=== PATIENT | female | born 1990 | race Caucasian/White ===

== ENCOUNTER 2017-07-17 17:05 | Emergency (ER) | payer OTHER ==
--- NOTE | 2017-07-17 17:29 | EDPHY ---
General - History Smoking Status: Never smoked Narrative: CHIEF COMPLAINT: Chest pain HISTORY OF PRESENT ILLNESS: Patient complains of left-sided chest pain. This started abruptly 2 hours ago while at rest. It is described as a pleuritic type pain that is worse with inspiration. It does radiate through to the back on the left side only. No cough. No hemoptysis. No shortness of breath. no recent upper or lower respiratory infections. No trauma or surgery. No extremity erythema edema or pain. She did fly to [place] 10 days ago. She has no previous venous thrombolic event. She does not take any estrogen or control pills. No other associated complaints or modifying factors. REVIEW OF SYSTEMS: Ten systems reviewed and are negative unless otherwise noted in the HPI SPECIALISTS: None PAST MEDICAL HISTORY: Asthma orthopedic injuries PAST SURGICAL HISTORY: Ankle reconstruction. Tubal cyst removal SOCIAL HISTORY: Nonsmoker. 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 Respiratory: Lungs are clear to auscultation. No wheezing, rhonchi or crackles Cardiovascular: Regular rate and rhythm. No murmur Gastrointestinal: Abdomen is soft and nontender Back: non-tender, no bony abnormalities Neurological: A&O, nonfocal Skin: Warm and dry, no rash. No petechiae or purpura Extremities: Nontender, no pedal edema. Range of motion is symmetric in the extremities Psychiatric: Mood and affect normal DIFFERENTIAL DIAGNOSES: Including but not limited to: Musculoskeletal pain, pneumonia, bronchitis, pleurisy, PE MDM: 5:28 p.m. Left-sided chest pain that radiates to the back. This is a pleuritic type pain. Vital signs were well within normal limits. She does have a recent flight to [place] less than 2 weeks ago. She is not tachycardic or tachypneic. She is not hypoxic. She does not have any hemoptysis. No evidence of DVT in the extremities. I have ordered a D-dimer laboratory studies. I have ordered chest x-ray. EKG is currently being obtained. Low clinical suspicion for cardiac involvement as this is somewhat reproducible with movement of the arm. She is in no acute distress and vital signs stable. I have discussed the case with Dr. Betts 6:20 p.m. Laboratory studies reveal a mildly elevated white count of 13. Troponin negative. D-dimer negative. EKG unremarkable and interpreted by Dr. Betts. Chest x-ray has not yet been obtained. 7:10 p.m. Chest x-ray has been read with Dr. Betts. Without the aid of the radiologist , we do not appreciate any acute findings. I have re-examined the patient. Vital signs remained within normal limits. She has no worsening of her pain. No improvement at this time. She has no shortness of breath. No fever. I do not feel this is cardiac in etiology. Her D-dimer is negative, thus I do not think that this is a pulmonary embolism. We discussed treating this as a musculoskeletal pain. We discuss anti-inflammatories and Flexeril. We discussed follow up with primary care physician in the next 2-3 days. We also discussed ED precautions for worsening pain, fever, shortness of breath, exertional pain. The patient and her significant other are comfortable with this plan. She will be discharged home stable condition. EKG interpretation: Dr. Betts Normal sinus rhythm. Rate 97. No ischemia. SUPERVISION: Patient was evaluated and examined in conjunction with my secondary supervising physician as documented. We have both examined the patient. (Luis M Watt) - Diagnostics Imaging Results: Imaging Impressions Chest X-Ray 07/17/17 17:29 Impression: Normal. Discussion: I evaluated and participated in the management of the patient. I also evaluated the patient independently. My co-signature indicates that I have reviewed this chart and I agree with the findings and plan of care as documented. My personal H&P findings include: Pleasant 26-year-old female presenting with lateral left chest discomfort with radiation down toward her scapula as well as under her breast which developed earlier today. Mildly pleuritic. Has been sick with GI symptoms last week. No current fever. No cough. No palpitations , syncope, lightheadedness, or dizziness. No history of DVTs or PEs. No family history of DVTs or PEs. Patient is a nonsmoker and is not on any control pills or estrogen. On examination the patient is alert, well-developed well-nourished. Lung sounds are clear to auscultation. Heart is regular rate and rhythm. Very mild discomfort with palpation in the infrascapular region in. No rash noted. Evaluation included an EKG without ischemic changes. Negative troponin. Negative D-dimer. Chest x-ray which does not demonstrate a clear etiology of the patient's pain. Suspect musculoskeletal versus atypical pain. No signs of a rash at this point. Feel patient is safe to be discharged home close follow-up. She was instructed regarding ibuprofen and Tylenol. She will return if she develops a rash. She will return if she develops worsening symptoms, including fevers, chills, cough, sputum production, worsening pain, lightheadedness, dizziness. (Leticia Betts) - Objective Vital Signs: Initial Vital Signs Temperature (C) 97.9 F 07/17/17 17:09 Heart Rate 88 07/17/17 17:09 Respiratory Rate 18 07/17/17 17:09 Blood Pressure 125/86 H 07/17/17 17:09 O2 Sat (%) 98 07/17/17 17:09 O2 Delivery Mode Room Air Allergies/Adverse Reactions: No Known Allergies Allergy (Unverified 07/17/17 17:08) Home Medications: Medication Instructions Recorded Cyclobenzaprine [Flexeril 10 MG 10 mg PO TID PRN #15 tab 07/17/17 (*)] Ibuprofen 600 mg PO Q8 PRN #15 tablet 07/17/17 Laboratory Results: Laboratory Results 07/17/17 17:30 07/17/17 17:30 07/17/17 07/17/17 07/17/17 17:30 17:30 17:30 WBC RBC Hgb Hct MCV MCH MCHC RDW Plt Count MPV Neut % (Auto) Lymph % (Auto) [place] % (Auto) Eos % (Auto) Baso % (Auto) Nucleat RBC Rel Count Absolute Neuts (auto) Absolute Lymphs (auto) Absolute Monos (auto) Absolute Eos (auto) Absolute Basos (auto) Absolute Nucleated RBC Immature Gran % Immature Gran # D-Dimer < 0.27 ug/mLFEU ug/mLFEU (0.00-0.50) Sodium 139 mEq/L mEq/L (134-144) Potassium 3.6 mEq/L mEq/L (3.5-5.2) Chloride 98 mEq/L mEq/L (97-110) Carbon Dioxide 24 mEq/l mEq/l (22-31) Anion Gap 17 mEq/L H mEq/L (8-16) BUN 12 mg/dL mg/dL (7-23) Creatinine 1.0 mg/dL mg/dL (0.6-1.0) Estimated GFR > 60 Glucose 98 mg/dL mg/dL (70-100) Calcium 10.3 mg/dL mg/dL (8.5-10.4) Troponin I < 0.012 ng/mL ng/mL (0.000-0.034) Beta HCG, Qual NEGATIVE 07/17/17 17:30 WBC 13.02 10^3/uL H 10^3/uL (3.80-9.50) RBC 5.00 10^6/uL 10^6/uL (4.18-5.33) Hgb 15.3 g/dL g/dL (12.6-16.3) Hct 44.0 % % (38.0-47.0) MCV 88.0 fL fL (81.5-99.8) MCH 30.6 pg pg (27.9-34.1) MCHC 34.8 g/dL g/dL (32.4-36.7) RDW 11.9 % % (11.5-15.2) Plt Count 341 10^3/uL 10^3/uL (150-400) MPV 10.3 fL fL (8.7-11.7) Neut % (Auto) 74.8 % H % (39.3-74.2) Lymph % (Auto) 19.7 % % (15.0-45.0) [place] % (Auto) 4.1 % L % (4.5-13.0) Eos % (Auto) 0.5 % L % (0.6-7.6) Baso % (Auto) 0.5 % % (0.3-1.7) Nucleat RBC Rel Count 0.0 % % (0.0-0.2) Absolute Neuts (auto) 9.75 10^3/uL H 10^3/uL (1.70-6.50) Absolute Lymphs (auto) 2.56 10^3/uL 10^3/uL (1.00-3.00) Absolute Monos (auto) 0.53 10^3/uL 10^3/uL (0.30-0.80) Absolute Eos (auto) 0.06 10^3/uL 10^3/uL (0.03-0.40) Absolute Basos (auto) 0.07 10^3/uL 10^3/uL (0.02-0.10) Absolute Nucleated RBC 0.00 10^3/uL 10^3/uL (0-0.01) Immature Gran % 0.4 % % (0.0-1.1) Immature Gran # 0.05 10^3/uL 10^3/uL (0.00-0.10) D-Dimer Sodium Potassium Chloride Carbon Dioxide Anion Gap BUN Creatinine Estimated GFR Glucose Calcium Troponin I Beta HCG, Qual Departure - Departure Disposition: Home, Routine, Self-Care Clinical Impression: Chest pain Qualifiers: Chest pain type: unspecified Qualified Code(s): R07.9 - Chest pain, unspecified Condition: Good Instructions: Chest Pain (ED), Chest Wall Pain (ED) Additional Instructions: 1. Medications as prescribed as needed 2. Contact her primary care physician tomorrow to be seen in the next few days 3. ED precautions as discussed Referrals: Judit Johnson MD [Primary Care Provider] - As per Instructions Prescriptions: Cyclobenzaprine [Flexeril 10 MG (*)] 10 mg PO TID PRN #15 tab PRN Reason: Spasms Ibuprofen 600 mg PO Q8 PRN #15 tablet PRN Reason: Pain, Mild
--- NOTE | 2017-07-17 17:32 | CPEKG ---
Heart Rate: 87 RR Interval: 690 P-R Interval: 128 QRSD Interval: 86 QT Interval: 380 QTC Interval: 457 P [place]: 63 QRS [place]: 60 T Wave [place]: 36 EKG Severity - NORMAL ECG - EKG Impression: SINUS RHYTHM Electronically Signed By: Leticia Betts 17-Jul-2017 22:40:49
[2017-07-17 17:46] LABS: % IMMATURE GRANULYOCYTES 0.4 % (0.0-1.1); ABSOLUTE IMMATURE GRANULOCYTES 0.05 10^3/uL (0.00-0.10); ADD DIFF? NO; ADD MORPH? NO; ADD SCAN? NO; ATYPICAL LYMPHOCYTE FLAG 0 (0-99); FRAGMENT RBC FLAG 0 (0-99); HEMOGLOBIN 15.3 g/dL (12.6-16.3); LEFT SHIFT FLG 0 (0-99); LIPEMIA HEMOLYSIS FLAG 90 (0-99); MEAN CELL HEMOGLOBIN 30.6 pg (27.9-34.1); MEAN CELL HEMOGLOBIN CONCENTR. 34.8 g/dL (32.4-36.7); MEAN PLATELET VOLUME 10.3 fL (8.7-11.7); PLATELET CLUMPS FLAG 0 (0-99); PLATELET COUNT 341 10^3/uL (150-400); RED CELL DISTRIBUTION WIDTH 11.9 % (11.5-15.2)
[2017-07-17 17:59] LABS: ANION GAP 17 mEq/L (8-16); CALCIUM 10.3 mg/dL (8.5-10.4); CARBON DIOXIDE 24 mEq/l (22-31); CHLORIDE 98 mEq/L (97-110); GLOMERULAR FILTRATION RATE > 60; GLUCOSE 98 mg/dL (70-100); POTASSIUM 3.6 mEq/L (3.5-5.2); SODIUM 139 mEq/L (134-144)
[2017-07-17 18:11] LABS: TROPONIN I < 0.012 ng/mL (0.000-0.034)
[2017-07-17 18:25] VITALS: O2SAT 97
[2017-07-17 19:23] VITALS: BP 116/76; PULSE 95; RESP 20; TEMP 98.2
== END 2017-07-17 19:22 | disposition home or self-care (01) ==
DX: R07.9 Chest pain, unspecified (principal); J45.909 Unspecified asthma, uncomplicated

== ENCOUNTER 2017-07-23 07:28 | Emergency (ER) | payer OTHER ==
--- NOTE | 2017-07-23 07:44 | EDPHY ---
HPI/HX/ROS/PE/MDM Narrative: CHIEF COMPLAINT: N/V/D HISTORY OF PRESENT ILLNESS: The patient is a 26 y/o female arriving with her complaining of nausea, vomiting, and diarrhea starting in the nurse wound care hours. She was evaluated here last week for musculoskeletal chest pain and had mild GI symptoms at that time as well. Her chest pain resolved with ibuprofen. She was around family members at [facility] with GI symptoms, though their symptoms have resolved. She was feeling relatively well and traveled home from out of town last night, and her ate the same food as her without developing symptoms. She's had 6 episodes of non-bloody diarrhea since last night. No blood in emesis. No fevers. She has some mild abdominal cramping. Last menstrual period was about 2-3 weeks ago. No fever, chills, chest pain, shortness of breath, palpitations, urinary complaints, flank pain, headache, lightheadedness. REVIEW OF SYSTEMS: Aside from elements discussed in the HPI, a comprehensive 10-point review of systems was reviewed and is negative. PAST MEDICAL HISTORY: Fallopian tube cyst removal, otherwise no abdominal surgeries. SOCIAL HISTORY: No recent alcohol use. Nonsmoker. No marijuana use. at bedside. 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 VITAL SIGNS: Reviewed by me GENERAL: Well-developed, well-nourished, looks uncomfortable, complaining of nausea. HEENT: Atraumatic. Eyes: No icterus, no injection. Mouth: dry mucous membranes. No erythema or lesions. Neck: supple with no adenopathy. LUNGS: Clear to auscultation bilaterally, no wheezes, rhonchi or rales. CARDIAC: Regular rate and rhythm, no rubs, murmurs or gallops. ABDOMEN: Soft, mild diffuse tenderness with voluntary guarding, no rebound, nondistended, bowel sounds normal. BACK: Mild left CVA tenderness. EXTREMITIES: No trauma. No edema. Range of motion is normal throughout. NEURO: Alert and oriented, grossly nonfocal. SKIN: Slightly cool and dry, no rash. PSYCHIATRIC: Normal mentation, no agitation. Portions of this note were transcribed by a certified medical aide. I personally performed a history, physical exam, medical decision making, and confirmed accuracy of information the transcribed note. ED Course: This is a normally healthy 26 y/o female who presents with nausea and vomiting and new-onset diarrhea in the last 12 hours. She has mild diffuse abdominal tenderness and dry mucous membranes on exam. Plan for IV, labs, UA, flu swab, and symptom management. 1L IV NS and 4mg IV Zofran administered. No fevers, no exotic travel. WBC elevated at 20.9. Reassessed patient. She appears significantly improved and more active. Her abdomen is completely benign. Plan for another 1L IV NS and check urinalysis. No evidence of UTI on UA/microscopic exam. Patient overall looks very well post fluids. No fever. Smiling, comfortable, abdomen benign. Feel no further treatment or studies are indicated. Discussed significantly elevated WBC with patient. She and understand reasons to return, leydi if fever develops, symptoms recur or are not well controlled with at home measures. Will DC with zofran. MDM: Differential diagnosis of the patient's nausea and vomiting was considered including but not limited to gastroenteritis, gastritis, alcohol intoxication, withdrawal symptoms, intraabdominal processes including appendicitis, pancreatitis, bowel obstruction and medication side effect. - Data Points Laboratory Results: Laboratory Results 07/23/17 07:55 07/23/17 07:55 Medications Given: Discontinued Medications Sodium Chloride (Ns) 1,000 mls @ 0 mls/hr IV EDNOW ONE; Wide Open PRN Reason: Protocol Stop: 07/23/17 07:46 Last Admin: 07/23/17 08:00 Dose: 1,000 mls Ondansetron HCl (Zofran) 4 mg IVP EDNOW ONE Stop: 07/23/17 07:46 Last Admin: 07/23/17 07:59 Dose: 4 mg Microbiology Results: MICROBIOLOGY 07/23/17 09:48 Unspecified Urine Culture - Preliminary Five Or More [place] Types General Time Seen by Provider: 07/23/17 07:34 Initial Vital Signs: Initial Vital Signs Temperature (C) 36.6 C 07/23/17 07:29 Heart Rate 91 07/23/17 07:29 Respiratory Rate 18 07/23/17 07:29 Blood Pressure 105/72 07/23/17 07:29 O2 Sat (%) 98 07/23/17 07:29 O2 Delivery Mode Room Air Allergies/Adverse Reactions: No Known Allergies Allergy (Verified 07/23/17 07:29) Home Medications: Medication Instructions Recorded Ondansetron Odt [Zofran Odt 4 mg 4 mg PO Q6 PRN #8 tab 07/23/17 (RX)] Departure - Departure Disposition: Home, Routine, Self-Care Clinical Impression: Gastroenteritis Condition: Good Instructions: Gastroenteritis (ED), Acute Nausea and Vomiting (ED) Additional Instructions: 1. Take Zofran as prescribed when needed for nausea and vomiting. Increase fluid intake with small, frequent sips of fluid. For your vomiting and diarrhea, I suggested you start with a bland diet and advance as tolerated. This means start with clear liquids such as water, Gatorade, juice, flat non- caffeinated soda. If you tolerate clear liquids, then you may add bland foods such as bananas, rice, or toast. If you do not have any worsening of your symptoms, you may begin to resume a regular diet. 2. Follow up with your primary care provider for unimproved symptoms over the next 2-3 days. 3. Return to the ED for worsening of condition. Referrals: Lena Ahn MD [Medical Doctor] - As per Instructions Prescriptions: Ondansetron Odt [Zofran Odt 4 mg (RX)] 4 mg PO Q6 PRN #8 tab PRN Reason: Nausea Report Scribed for: Leticia Betts Report Scribed by: Makenzie Boateng Date of Report: 07/23/17 Time of Report: 07:46
[2017-07-23] MEDS ORDERED: NS 1,000 ML IV ONE (07:45)
[2017-07-23] MEDS ORDERED: ONDANSETRON 4 MG/2 ML VIAL IVP ONE (07:45)
[2017-07-23 08:05] LABS: % IMMATURE GRANULYOCYTES 0.4 % (0.0-1.1); ABSOLUTE IMMATURE GRANULOCYTES 0.08 10^3/uL (0.00-0.10); ADD DIFF? NO; ADD MORPH? NO; ADD SCAN? NO; ATYPICAL LYMPHOCYTE FLAG 0 (0-99); FRAGMENT RBC FLAG 0 (0-99); HEMATOCRIT 42.4 % (38.0-47.0); HEMOGLOBIN 15.6 g/dL (12.6-16.3); LEFT SHIFT FLG 0 (0-99); LIPEMIA HEMOLYSIS FLAG 90 (0-99); MEAN CELL HEMOGLOBIN 31.7 pg (27.9-34.1); MEAN CELL HEMOGLOBIN CONCENTR. 36.8 g/dL (32.4-36.7); MEAN CELL VOLUME 86.2 fL (81.5-99.8); MEAN PLATELET VOLUME 10.3 fL (8.7-11.7); PLATELET CLUMPS FLAG 0 (0-99); PLATELET COUNT 330 10^3/uL (150-400); RED BLOOD CELL COUNT 4.92 10^6/uL (4.18-5.33); RED CELL DISTRIBUTION WIDTH 11.9 % (11.5-15.2)
[2017-07-23 08:26] LABS: ALANINE AMINOTRANSFERASE 30 IU/L (9-52); ALBUMIN 4.9 g/dL (3.5-5.0); ALKALINE PHOSPHATASE 52 IU/L (38-126); ANION GAP 17 mEq/L (8-16); ASPARTATE AMINOTRANSFERASE 24 IU/L (14-46); BILIRUBIN,TOTAL 1.5 mg/dL (0.1-1.4); BILIRUBIN-CONJUGATED 0.2 mg/dL (0.0-0.5); BILIRUBIN-UNCONJUGATED 1.3 mg/dL (0.0-1.1); CALCIUM 10.4 mg/dL (8.5-10.4); CARBON DIOXIDE 19 mEq/l (22-31); CHLORIDE 107 mEq/L (97-110); CREATININE 0.9 mg/dL (0.6-1.0); GLOMERULAR FILTRATION RATE > 60; GLUCOSE 107 mg/dL (70-100); POTASSIUM 4.1 mEq/L (3.5-5.2); SODIUM 143 mEq/L (134-144); TOTAL PROTEIN 8.2 g/dL (6.3-8.2)
[2017-07-23 10:04] LABS: COLOR YELLOW; LEUKOCYTE ESTERASE,URINE NEGATIVE (NEGATIVE); NITRITE,URINE NEGATIVE (NEGATIVE)
[2017-07-23 10:22] VITALS: BP 107/64; PULSE 85; RESP 16; TEMP 98.2; O2SAT 95
== END 2017-07-23 10:26 | disposition home or self-care (01) ==
DX: K52.9 Noninfective gastroenteritis and colitis, unspecified (principal); E86.9 Volume depletion, unspecified
CPT/HCPCS: 96374; J2405